=== PATIENT | male | born 1975 | race African-American/Black ===

== ENCOUNTER 2023-12-04 14:09 | Emergency (ER) | payer SELFPAY ==
[~2023-12-04] VITALS: Ht 177.8 cm; Wt 92.0 kg
[2023-12-04 14:11] VITALS: O2SAT 99
[2023-12-04 14:18] VITALS: BP 146/106; PULSE 94; RESP 16; TEMP 98.7; O2SAT 99
[2023-12-04] MEDS ORDERED: OMEP40CA20 MT (14:53)
[2023-12-04] MEDS ORDERED: PROM6.2527 MT (14:53)
== END 2023-12-04 15:15 | disposition home or self-care (01) ==
LOC: ER 14:20
DX: K21.9 Gastro-esophageal reflux disease without esophagitis (principal); Z76.0 Encounter for issue of repeat prescription
CPT/HCPCS: 99283